=== PATIENT | female | born 1950 | race Caucasian/White ===

== ENCOUNTER → 2024-03-26 12:01 | Outpatient (CLI) | payer OTHER, SELFPAY ==
--- NOTE | 2024-03-26 12:04 | DI.RAD.S_ITS ---
PROCEDURE: XR CERVICAL SPINE 4V OR 5V INDICATIONS: NECK PAIN TECHNIQUE: 5 views of the cervical spine acquired. COMPARISON: Outside Facility, RG, MRI C-SPINE W/O CONTRAST, 07/24/2022, 12:50. FINDINGS: Bones: No fractures or dislocations to the T1 level. Oblique images demonstrate no bony foraminal stenoses. Minimal degenerative changes. Soft tissues: No prevertebral soft tissue swelling. IMPRESSION: Minimal degenerative changes seen. Dictated by: Boo Mendiola M.D. on 03/26/2024 at 13:07 Approved by: Boo Mendiola M.D. on 03/26/2024 at 13:09
== END ==
PROVIDERS: Referring Provider Physical Medicine & Rehabilitation; Visit Provider Physical Medicine & Rehabilitation
DX: M54.2 Cervicalgia (principal)
CPT/HCPCS: 72050; 99214